=== PATIENT | male | born 1955 | race Caucasian/White ===

== ENCOUNTER 2016-04-24 18:36 | Emergency (ER) | payer BC ==
[2016-04-24] MEDS ORDERED: PREDNISONE 20 MG TAB PO ONE (19:03)
[2016-04-24] MEDS ORDERED: IPRATROPIUM/ALBUTEROL (0.5MG/3MG) NEB INH ONE (19:03)
[2016-04-24] MEDS ORDERED: DOXYCYCLINE HYCLATE 100 MG CAPSULE PO ONE (19:03)
--- NOTE | 2016-04-24 19:09 | Emergency Department Record ---
History of Present Illness - General Chief Complaint: Difficulty Breathing Stated Complaint: URI Time Seen by Provider: 04/24/16 18:43 Source: Patient Mode of Arrival: Ambulatory Limitations: No limitations - History of Present Illness Initial Comments: 60 yo male presents to ED with a CC of difficulty breathing, cough, and a head cold that began 2-3 days ago. Patient reports similar symptoms about four times annually, reports that it starts in the head and travels down into his lungs. Patient denies history of COPD or asthma. Patient denies fevers, chills , nausea, or vomiting symptoms. MD Complaint: Cough Onset/Timin -: Days(s), Month(s) Severity: Moderate Consistency: Constant Improves With: Nothing Worsens With: Nothing Known History Of: Other (bronchitis) Context: Recent URI Associated Symptoms: Denies other symptoms Treatments Prior to Arrival: Bronchodilator - Related Data Home Oxygen Therapy: No Previous Rx's Medication Instructions Recorded Ipratropium/Albuterol Sulfate 1 - 2 puff IH QID PRN #1 inh 03/11/16 [Combivent] Albuterol Sulfate [Proair Hfa] 1 - 2 puff IH Q2-4H #1 inhaler 04/24/16 Doxycycline Hyclate [Doxycycline] 100 mg PO BID #19 cap 04/24/16 Prednisone [Prednisone 20Mg] 20 mg PO TID #12 tab 04/24/16 Allergies Allergy/AdvReac Type Severity Reaction Status Date / Time Penicillins Allergy Unknown RASH Verified 08/04/15 16:56 Travel Screening - Travel/Exposure Within Last 30 Days Have you traveled within the last 30 days?: No - Travel/Exposure Within Last Year Have you traveled outside the [place] in the last year?: No - Additonal Travel Details Have you been exposed to anyone with a communicable illness?: No - Travel Symptoms Symptom Screening: None Review of Systems Constitutional: Denies: Chills, Fever, Malaise, Night sweats Eyes: Denies: Eye discharge, Eye pain ENT: Reports: Congestion. Denies: Ear pain, Epistaxis Respiratory: Reports: Cough, Dyspnea, Wheezes Cardiovascular: Denies: Chest pain, Dyspnea on exertion Endocrine: Denies: Fatigue, Heat or cold intolerance Gastrointestinal: Denies: Abdominal pain, Nausea, Vomiting Genitourinary: Denies: Incontinence, Retention Musculoskeletal: Denies: Arthralgia, Back pain, Gout Skin: Denies: Bruising, Change in color Neurological: Denies: Abnormal gait, Confusion, Headache, Seizure Psychiatric: Denies: Anxiety Hematological/Lymphatic: Denies: Anemia, Blood Clots Past Medical History - SOCIAL HISTORY Smoking Status: Never smoker Alcohol Use: None Drug Use: None - RESPIRATORY Hx Respiratory Disorders: No - CARDIOVASCULAR Hx Cardio Disorders: No - NEURO Hx Neuro Disorders: No - GI Hx GI Disorders: No - Hx Genitourinary Disorders: No - ENDOCRINE Hx Endocrine Disorders: No - MUSCULOSKELETAL Hx Musculoskeletal Disorders: Yes Hx Back Injury: Yes Comment:: herniated disc - PSYCH Hx Psych Problems: No - HEMATOLOGY/ONCOLOGY Hx Hematology/Oncology Disorders: No Family Medical History Any Significant Family History?: No Hx Cancer: Father *Cancer Comment: father- prostate ca and ALS Physical Exam - General General Appearance: Alert, Oriented x3, Cooperative, Mild distress Limitations: No limitations - Head Head exam: Atraumatic, Normocephalic, Normal inspection Head exam detail: negative: Abrasion, Contusion, Casey's sign, General tenderness, Hematoma, Laceration - Eye Eye exam: Normal appearance. negative: Conjunctival injection, Periorbital swelling, Periorbital tenderness, Scleral icterus - ENT Ear exam: negative: Auricular hematoma, Auricular trauma Nasal Exam: negative: Active bleeding, Discharge, Dried blood, Foreign body, Sinus tenderness Mouth exam: negative: Drooling, Laceration, Muffled voice, Tongue elevation - Neck Neck exam: Normal inspection. negative: Meningismus, Tenderness - Respiratory Respiratory exam: Decreased breath sounds, Prolonged expiratory, Wheezes. negative: Accessory muscle use, Respiratory distress - Cardiovascular Cardiovascular Exam: Regular rate, Normal rhythm, Normal heart sounds - GI/Abdominal GI/Abdominal exam: Soft. negative: Rebound, Rigid, Tenderness - Rectal Rectal exam: Deferred - exam: Deferred - Extremities Extremities exam: Normal inspection. negative: Calf tenderness, Pedal edema, Tenderness - Back Back exam: Denies: CVA tenderness (R), CVA tenderness (L) - Neurological Neurological exam: Alert, Normal gait, Oriented X3 - Psychiatric Psychiatric exam: Normal affect, Normal mood - Skin Skin exam: Normal color. negative: Abrasion Type of lesion: negative: abrasion Course Vital Signs 04/24/16 18:51 Temperature 98.8 F Pulse Rate 87 Respiratory 16 Rate Blood Pressure 152/86 Pulse Ox 95 - Reevaluation(s) Reevaluation #1: 04/24/16 19:07 On examination, patient has audible wheezes present without evidence for respiratory distress. Will administer Duoneb, prednisone, and doxycycline and reassess. Reevaluation #2: 04/24/16 19:28 Patient reassessed following duoneb, wheezing is greatly improved and the patient reports significant improvement in his symptoms. Patient appears stable for discharge on Albuterol, Prednisone, and Doxycycline for treatment of his bronchitis. Disposition Disposition: Discharge Clinical Impression: Bronchitis with bronchospasm Disposition: Home, Self-Care Condition: (2) Stable Instructions: Acute Bronchitis (ED) Additional Instructions: Return to ED if your symptoms worsen or if you have any concerns. Prednisone, Albuterol, and Doxycycline as directed. Follow-up with your family doctor in 3-5 days as directed. Prescriptions: Doxycycline Hyclate [Doxycycline] 100 mg PO BID #19 cap Prednisone [Prednisone 20Mg] 20 mg PO TID #12 tab Albuterol Sulfate [Proair Hfa] 1 - 2 puff IH Q2-4H #1 inhaler Forms: Patient Portal Access Time of Disposition: 19:29
== END 2016-04-24 19:39 | disposition home or self-care (01) ==
LOC: ER 18:36
DX: J21.9 Acute bronchiolitis, unspecified (principal)
CPT/HCPCS: 99283 ×2; 94640; J7512